=== PATIENT | male | born 1945 | race Caucasian/White ===

== ENCOUNTER 2024-05-02 08:59 | Inpatient (IN) ==
[2024-05-02] MEDS ORDERED: IOPAMIDOL 100 ML BOTTLE IV ONE (09:00)
[2024-05-02] MEDS: methylPREDNISolone SOD SUCC 125 MG/2 ML VIAL IV ONE (09:25)
[2024-05-02] MEDS: IPRATROPIUM/ALBUTEROL 3 ML AMPUL.NEB NEB ONE (09:44)
[2024-05-02 10:10] LABS: Basophils # (Auto) 0.05 K/mcL (0.00-0.30); Basophils % (Auto) 0.2 % (0.0-2.0); Eosinophils # (Auto) 0.02 K/mcL (0.00-0.70); Eosinophils % (Auto) 0.1 % (0.0-7.0); Hematocrit 39.4 % (40.1-51.0); Hemoglobin 12.6 g/dL (13.7-17.5); Lymphocytes # (Auto) 1.15 K/mcL (1.50-4.80); Lymphocytes % (Auto) 5.3 % (15.5-49.0); Mean Cell Volume 91.2 fL (80.0-100.0); Mean Platelet Volume 10.4 fL (8.8-12.5); Monocytes # (Auto) 1.23 K/mcL (0.10-0.90); Monocytes % (Auto) 5.7 % (1.0-12.0); Neutrophils % (Auto) 87.8 % (38.0-78.0); Platelet Count 726 K/mcL (140-440); RBC 4.32 M/mcL (4.63-6.08); Red Cell Distribution Width 13.9 % (11.5-14.5); WBC 21.6 K/mcL (4.5-11.0)
[2024-05-02 10:25] LABS: ALT/SGPT 45 U/L (<40); AST/SGOT 38 U/L (<40); Albumin 3.2 gm/dL (3.2-5.2); Albumin/Globulin Ratio 0.8 (1.0-2.3); Alkaline Phosphatase 120 U/L (39-117); Bilirubin,Total 0.4 mg/dL (0.1-1.0); Blood Urea Nitrogen 15 mg/dL (8-23); Calcium 9.3 mg/dL (8.6-10.4); Carbon Dioxide 22 mmol/L (22-30); Chloride 93 mmol/L (96-108); Globulin 3.8 gm/dL (2.2-3.7); Glomerular Filtration Rate 71; Glucose 171 mg/dL (70-105)
[2024-05-02] MEDS: FUROSEMIDE 40 MG/4 ML VIAL IV ONE (11:00)
[2024-05-02] MEDS: cefTRIAXone 2 GM in DEXTROSE 5% IN WATER 50 ML IV ONE (11:02)
[2024-05-02] MEDS: AZITHROMYCIN 500 MG in DEXTROSE 5% IN WATER 250 ML IV ONE (11:07)
[2024-05-02 11:49] LABS: INR 2.1 (0.9-1.1); Prothrombin Time 24.7 sec (11.9-14.5)
[2024-05-02] MEDS ORDERED: ONDANSETRON 4 MG/2 ML VIAL IV PRN (13:49)
[2024-05-02] MEDS ORDERED: MAGNESIUM HYDROXIDE 30 ML ORAL.SUSP PO PRN (13:49)
[2024-05-02] MEDS ORDERED: ACETAMINOPHEN 325 MG TABLET PO PRN (13:49)
[2024-05-02] MEDS ORDERED: BISACODYL 10 MG SUPP.RECT PR PRN (13:49)
[2024-05-02 14:18] LABS: Phosphorous 3.5 mg/dL (2.5-4.5)
[2024-05-02] MEDS: 0.9 % SODIUM CHLORIDE 10 ML SYRINGE IV SCH (15:56)
[2024-05-02] MEDS: IPRATROPIUM/ALBUTEROL 3 ML AMPUL.NEB NEB SCH (15:57)
[2024-05-02] MEDS: RIVAROXABAN 20 MG TABLET PO SCH (16:55)
[2024-05-02] MEDS: DOXYCYCLINE 100 MG in DEXTROSE 5% IN WATER 100 ML IV SCH (16:55)
[2024-05-02] MEDS: Budesonide-Formoterol [Symbicort] 160-4.5 mcg Inhaler INH SCH (21:09)
[2024-05-03 06:25] LABS: Basophils # (Auto) 0.03 K/mcL (0.00-0.30); Basophils % (Auto) 0.2 % (0.0-2.0); Eosinophils # (Auto) 0 K/mcL (0.00-0.70); Eosinophils % (Auto) 0 % (0.0-7.0); Hematocrit 35.7 % (40.1-51.0); Hemoglobin 11.7 g/dL (13.7-17.5); Lymphocytes # (Auto) 1.49 K/mcL (1.50-4.80); Lymphocytes % (Auto) 7.9 % (15.5-49.0); Mean Cell Volume 90.4 fL (80.0-100.0); Mean Corpuscular HGB Conc 32.8 g/dL (31.0-36.0); Mean Platelet Volume 10.3 fL (8.8-12.5); Monocytes # (Auto) 0.71 K/mcL (0.10-0.90); Monocytes % (Auto) 3.7 % (1.0-12.0); Neutrophils % (Auto) 87.3 % (38.0-78.0); Platelet Count 703 K/mcL (140-440); RBC 3.95 M/mcL (4.63-6.08); Red Cell Distribution Width 13.8 % (11.5-14.5); WBC 18.9 K/mcL (4.5-11.0)
[2024-05-03 06:27] LABS: C-Reactive Protein 19.4 mg/dL (0.03-0.80)
[2024-05-03 06:29] LABS: Phosphorous 4.3 mg/dL (2.5-4.5)
[2024-05-03 06:31] LABS: ALT/SGPT 37 U/L (<40); AST/SGOT 33 U/L (<40); Albumin 2.9 gm/dL (3.2-5.2); Albumin/Globulin Ratio 0.8 (1.0-2.3); Alkaline Phosphatase 109 U/L (39-117); Bilirubin,Total 0.3 mg/dL (0.1-1.0); Blood Urea Nitrogen 17 mg/dL (8-23); Carbon Dioxide 25 mmol/L (22-30); Chloride 98 mmol/L (96-108); Globulin 3.6 gm/dL (2.2-3.7); Glomerular Filtration Rate 90; Glucose 157 mg/dL (70-105)
[2024-05-03] MEDS: PANTOPRAZOLE 40 MG TABLET PO SCH (07:29)
[2024-05-03] MEDS: methylPREDNISolone SOD SUCC 125 MG/2 ML VIAL IV SCH (07:30)
[2024-05-03] MEDS: cefTRIAXone 1 GM VIAL IV SCH (09:03)
[2024-05-03] MEDS: LACTATED RINGERS 1,000 ML IV SCH ×2 (10:43→14:00)
[2024-05-03] MEDS: IPRATROPIUM/ALBUTEROL 3 ML AMPUL.NEB NEB SCH (15:47)
[2024-05-03] MEDS: SENNOSIDES 1 TABLET PO PRN (17:41)
[2024-05-03] MEDS: METOPROLOL TARTRATE 5 MG/5 ML VIAL IV ONE ×4 (23:13→23:59)
[2024-05-03] MEDS ORDERED: KETOROLAC 15 MG/ML VIAL IV PRN (23:30)
[2024-05-03] MEDS: METOPROLOL TARTRATE 5 MG/5 ML VIAL IV SCH (23:46)
[2024-05-03 23:50] LABS: Blood Urea Nitrogen 23 mg/dL (8-23); Carbon Dioxide 24 mmol/L (22-30); Chloride 97 mmol/L (96-108); Glomerular Filtration Rate 85; Glucose 150 mg/dL (70-105)
[2024-05-03] MEDS: MAG HYDROX/AL HYDROX/SIMETH 30 ML ORAL.SUSP PO ONE (23:53)
[2024-05-04] MEDS: MAG HYDROX/AL HYDROX/SIMETH 30 ML ORAL.SUSP ONE (02:44)
[2024-05-04 05:10] LABS: Basophils # (Auto) 0.01 K/mcL (0.00-0.30); Basophils % (Auto) 0 % (0.0-2.0); Eosinophils # (Auto) 0 K/mcL (0.00-0.70); Eosinophils % (Auto) 0 % (0.0-7.0); Hematocrit 34.6 % (40.1-51.0); Hemoglobin 11.3 g/dL (13.7-17.5); Lymphocytes % (Auto) 6.7 % (15.5-49.0); Mean Corpuscular HGB Conc 32.7 g/dL (31.0-36.0); Mean Platelet Volume 10.1 fL (8.8-12.5); Monocytes # (Auto) 0.74 K/mcL (0.10-0.90); Monocytes % (Auto) 3.5 % (1.0-12.0); Neutrophils % (Auto) 89.2 % (38.0-78.0); Platelet Count 715 K/mcL (140-440); RBC 3.76 M/mcL (4.63-6.08); Red Cell Distribution Width 13.7 % (11.5-14.5)
[2024-05-04 05:26] LABS: ALT/SGPT 58 U/L (<40); AST/SGOT 58 U/L (<40); Albumin 2.7 gm/dL (3.2-5.2); Albumin/Globulin Ratio 0.8 (1.0-2.3); Alkaline Phosphatase 101 U/L (39-117); Bilirubin,Total 0.2 mg/dL (0.1-1.0); Blood Urea Nitrogen 23 mg/dL (8-23); C-Reactive Protein 8.23 mg/dL (0.03-0.80); Calcium 8.9 mg/dL (8.6-10.4); Carbon Dioxide 25 mmol/L (22-30); Chloride 98 mmol/L (96-108); Globulin 3.4 gm/dL (2.2-3.7); Glomerular Filtration Rate 85; Glucose 148 mg/dL (70-105); Phosphorous 4.1 mg/dL (2.5-4.5)
[2024-05-04] MEDS: METOPROLOL SUCCINATE 50 MG TAB.XL.24H PO SCH (08:29)
[2024-05-04] MEDS: DOXYCYCLINE HYCLATE 100 MG TABLET.ORL PO SCH (08:30)
[2024-05-04] MEDS: FUROSEMIDE 40 MG/4 ML VIAL IV ONE (11:29)
[2024-05-04] MEDS: METOPROLOL TARTRATE 25 MG TABLET PO SCH (21:07)
[2024-05-05 06:16] LABS: ALT/SGPT 71 U/L (<40); AST/SGOT 56 U/L (<40); Albumin 2.7 gm/dL (3.2-5.2); Albumin/Globulin Ratio 0.9 (1.0-2.3); Alkaline Phosphatase 95 U/L (39-117); Basophils # (Auto) 0.01 K/mcL (0.00-0.30); Basophils % (Auto) 0.1 % (0.0-2.0); Bilirubin,Total 0.2 mg/dL (0.1-1.0); Blood Urea Nitrogen 27 mg/dL (8-23); C-Reactive Protein 3.33 mg/dL (0.03-0.80); Calcium 8.6 mg/dL (8.6-10.4); Carbon Dioxide 28 mmol/L (22-30); Chloride 99 mmol/L (96-108); Eosinophils # (Auto) 0.01 K/mcL (0.00-0.70); Eosinophils % (Auto) 0.1 % (0.0-7.0); Glomerular Filtration Rate 81; Glucose 106 mg/dL (70-105); Hematocrit 35.2 % (40.1-51.0); Hemoglobin 11.2 g/dL (13.7-17.5); Lymphocytes # (Auto) 2.54 K/mcL (1.50-4.80); Lymphocytes % (Auto) 13.2 % (15.5-49.0); Mean Cell Volume 92.6 fL (80.0-100.0); Mean Corpuscular HGB Conc 31.8 g/dL (31.0-36.0); Monocytes # (Auto) 1.19 K/mcL (0.10-0.90); Monocytes % (Auto) 6.2 % (1.0-12.0); Neutrophils % (Auto) 79.7 % (38.0-78.0); Phosphorous 3.8 mg/dL (2.5-4.5); Platelet Count 792 K/mcL (140-440); Red Cell Distribution Width 13.7 % (11.5-14.5); WBC 19.3 K/mcL (4.5-11.0)
[2024-05-05] MEDS: methylPREDNISolone SOD SUCC 125 MG/2 ML VIAL IV SCH (07:06)
[2024-05-05] MEDS: CEFDINIR 300 MG CAPSULE PO SCH (08:14)
[2024-05-05] MEDS ORDERED: METOPROLOL TARTRATE 50 MG TABLET PO ONE (08:19)
[2024-05-05] MEDS: METOPROLOL TARTRATE 50 MG TABLET PO SCH (08:33)
[2024-05-05] MEDS: POLYETHYLENE GLYCOL 3350 17 GM PACKET PO SCH (10:22)
[2024-05-05] MEDS: METOPROLOL TARTRATE 50 MG TABLET PO ONE (15:53)
[2024-05-05] MEDS: METOPROLOL TARTRATE 25 MG TABLET PO SCH (20:16)
[2024-05-05] MEDS ORDERED: METOPROLOL TARTRATE 25 MG TABLET PO SCH (21:00)
[2024-05-06 06:14] LABS: Basophils # (Auto) 0.02 K/mcL (0.00-0.30); Basophils % (Auto) 0.1 % (0.0-2.0); Eosinophils # (Auto) 0.07 K/mcL (0.00-0.70); Eosinophils % (Auto) 0.4 % (0.0-7.0); Hematocrit 39.3 % (40.1-51.0); Hemoglobin 12.6 g/dL (13.7-17.5); Lymphocytes # (Auto) 4.17 K/mcL (1.50-4.80); Lymphocytes % (Auto) 22.6 % (15.5-49.0); Mean Corpuscular HGB Conc 32.1 g/dL (31.0-36.0); Mean Platelet Volume 9.7 fL (8.8-12.5); Monocytes # (Auto) 1.29 K/mcL (0.10-0.90); Neutrophils % (Auto) 65.8 % (38.0-78.0); Platelet Count 748 K/mcL (140-440); RBC 4.27 M/mcL (4.63-6.08); Red Cell Distribution Width 13.5 % (11.5-14.5); WBC 18.5 K/mcL (4.5-11.0)
[2024-05-06 06:23] LABS: ALT/SGPT 120 U/L (<40); AST/SGOT 73 U/L (<40); Albumin 2.7 gm/dL (3.2-5.2); Albumin/Globulin Ratio 0.9 (1.0-2.3); Alkaline Phosphatase 94 U/L (39-117); Bilirubin,Total 0.2 mg/dL (0.1-1.0); Blood Urea Nitrogen 25 mg/dL (8-23); Calcium 8.7 mg/dL (8.6-10.4); Carbon Dioxide 27 mmol/L (22-30); Chloride 100 mmol/L (96-108); Glomerular Filtration Rate 85; Glucose 86 mg/dL (70-105); Phosphorous 2.9 mg/dL (2.5-4.5)
[2024-05-06 06:24] LABS: C-Reactive Protein 1.81 mg/dL (0.03-0.80)
[2024-05-06] MEDS: methylPREDNISolone SOD SUCC 125 MG/2 ML VIAL IV SCH (09:10)
[2024-05-07 06:07] LABS: Basophils # (Auto) 0.01 K/mcL (0.00-0.30); Basophils % (Auto) 0.1 % (0.0-2.0); Eosinophils # (Auto) 0.12 K/mcL (0.00-0.70); Eosinophils % (Auto) 0.6 % (0.0-7.0); Hematocrit 42.4 % (40.1-51.0); Hemoglobin 13.8 g/dL (13.7-17.5); Lymphocytes % (Auto) 22.8 % (15.5-49.0); Mean Cell Volume 90.4 fL (80.0-100.0); Mean Corpuscular HGB Conc 32.5 g/dL (31.0-36.0); Mean Platelet Volume 9.8 fL (8.8-12.5); Monocytes # (Auto) 1.05 K/mcL (0.10-0.90); Monocytes % (Auto) 5.6 % (1.0-12.0); Platelet Count 782 K/mcL (140-440); RBC 4.69 M/mcL (4.63-6.08); Red Cell Distribution Width 13.3 % (11.5-14.5); WBC 18.8 K/mcL (4.5-11.0)
[2024-05-07 06:34] LABS: Phosphorous 2.7 mg/dL (2.5-4.5)
[2024-05-07 06:37] LABS: ALT/SGPT 140 U/L (<40); AST/SGOT 65 U/L (<40); Albumin 3.2 gm/dL (3.2-5.2); Albumin/Globulin Ratio 0.9 (1.0-2.3); Alkaline Phosphatase 105 U/L (39-117); Bilirubin,Total 0.3 mg/dL (0.1-1.0); Blood Urea Nitrogen 26 mg/dL (8-23); Calcium 9.1 mg/dL (8.6-10.4); Carbon Dioxide 27 mmol/L (22-30); Chloride 97 mmol/L (96-108); Globulin 3.4 gm/dL (2.2-3.7); Glomerular Filtration Rate 71; Glucose 79 mg/dL (70-105)
[2024-05-07 06:44] LABS: C-Reactive Protein 1.31 mg/dL (0.03-0.80)
[2024-05-07] MEDS: predniSONE 20 MG TABLET PO SCH (08:22)
== END 2024-05-07 12:04 | disposition home or self-care (01) | DRG 871 ==
LOC: ED 08:59 → ICU 14:55
PROVIDERS: ADMIT Student in an Organized Health Care Education/Training Program; ATTEND Student in an Organized Health Care Education/Training Program

== ENCOUNTER 2025-10-31 10:13 | Observation (INO) ==
[2025-10-31 11:03] LABS: ALT/SGPT 26 U/L (<40); AST/SGOT 36 U/L (<40); Albumin 4.1 gm/dL (3.2-5.2); Albumin/Globulin Ratio 1.3 (1.0-2.3); Alkaline Phosphatase 92 U/L (39-117); Anion Gap 14.0 (8.0-16.0); Bilirubin,Total 0.3 mg/dL (0.1-1.0); Blood Urea Nitrogen 21 mg/dL (8-23); Calcium 9.7 mg/dL (8.6-10.4); Carbon Dioxide 25 mmol/L (22-30); Chloride 102 mmol/L (96-108); Globulin 3.1 gm/dL (2.2-3.7); Glucose 91 mg/dL (70-105); Potassium 4.0 mmol/L (3.3-5.1); Sodium 141 mmol/L (133-145)
[2025-10-31 11:10] LABS: Partial Thromboplastin Time 32.1 sec (20.0-37.0)
[2025-10-31 11:11] LABS: INR 1.3 (0.9-1.1); Prothrombin Time 17.0 sec (11.9-14.5)
[2025-10-31 11:16] LABS: Basophils # (Auto) 0.04 K/mcL (0.00-0.30); Basophils % (Auto) 0.5 % (0.0-2.0); Eosinophils # (Auto) 0.13 K/mcL (0.00-0.70); Eosinophils % (Auto) 1.6 % (0.0-7.0); Hematocrit 44.3 % (40.1-51.0); Hemoglobin 14.4 g/dL (13.7-17.5); Lymphocytes # (Auto) 1.97 K/mcL (1.50-4.80); Lymphocytes % (Auto) 24.3 % (15.5-49.0); Mean Corpuscular HGB Conc 32.5 g/dL (31.0-36.0); Monocytes # (Auto) 0.77 K/mcL (0.10-0.90); Monocytes % (Auto) 9.5 % (1.0-12.0); Neutrophils % (Auto) 64.0 % (38.0-78.0); Platelet Count 230 K/mcL (140-440); RBC 4.61 M/mcL (4.63-6.08); WBC 8.1 K/mcL (4.5-11.0)
[2025-10-31 12:13] LABS: Bacteria,Urine 0 /hpf (0); Bilirubin,Urine NEGATIVE (Negative); Color,Urine LT. YELLOW; Glucose,Urine (UA) NEGATIVE (Negative); Ketones,Urine NEGATIVE (Negative); Leukocyte Esterase,Urine NEGATIVE /uL (Negative); PH,Urine 7.0 (5.0-9.0); Protein,Urine NEGATIVE (Negative); Specific Gravity,Urine <= 1.005 (1.000-1.035); Urobilinogen,Urine 0.2 mg/dL
[2025-10-31] MEDS ORDERED: SENNOSIDES 1 TABLET PO PRN (13:51)
[2025-10-31] MEDS ORDERED: POTASSIUM CHLORIDE 20 MEQ TABLET PO PRN ×2 (13:51)
[2025-10-31] MEDS ORDERED: ONDANSETRON 4 MG/2 ML VIAL IV PRN (13:51)
[2025-10-31] MEDS ORDERED: IPRATROPIUM/ALBUTEROL 3 ML AMPUL.NEB NEB PRN (13:51)
[2025-10-31] MEDS ORDERED: POTASSIUM CHLORIDE 40 MEQ in DEXTROSE 5% IN WATER 500 ML IV PRN (13:51)
[2025-10-31] MEDS ORDERED: METOCLOPRAMIDE 10 MG/2 ML VIAL IV PRN (13:51)
[2025-10-31] MEDS ORDERED: POLYETHYLENE GLYCOL 3350 17 GM PACKET PO PRN (13:51)
[2025-10-31] MEDS ORDERED: ACETAMINOPHEN 325 MG TABLET PO PRN (13:51)
[2025-10-31] MEDS ORDERED: MAGNESIUM SULFATE 2 GM/50 ML BAG IV PRN (13:51)
[2025-10-31] MEDS: 0.9 % SODIUM CHLORIDE 1,000 ML IV ONE (14:41)
[2025-10-31 14:45] LABS: HDL Cholesterol 46 mg/dL (>40); LDL Cholesterol,Calculated 141 mg/dL (<100); Triglycerides 115 mg/dL (<150)
[2025-10-31] MEDS: TENECTEPLASE 50 MG/10 ML VIAL IV ONE (15:55)
[2025-10-31] MEDS: METOPROLOL SUCCINATE 50 MG TAB.XL.24H PO SCH (21:05)
[2025-10-31] MEDS: ATORVASTATIN 20 MG TABLET PO SCH (21:05)
[2025-10-31] MEDS: DOCUSATE SODIUM 100 MG CAPSULE PO SCH (21:07)
[2025-10-31] MEDS: Budesonide-Formoterol [Symbicort] 160-4.5 mcg Inhaler INH SCH (21:07)
[2025-11-01 06:43] LABS: ALT/SGPT 19 U/L (<40); AST/SGOT 32 U/L (<40); Albumin 3.7 gm/dL (3.2-5.2); Albumin/Globulin Ratio 1.3 (1.0-2.3); Alkaline Phosphatase 82 U/L (39-117); Anion Gap 11.0 (8.0-16.0); Bilirubin,Direct < 0.2 mg/dL (0-0.3); Bilirubin,Total 0.4 mg/dL (0.1-1.0); Blood Urea Nitrogen 17 mg/dL (8-23); Calcium 8.5 mg/dL (8.6-10.4); Carbon Dioxide 22 mmol/L (22-30); Chloride 105 mmol/L (96-108); Globulin 2.8 gm/dL (2.2-3.7); Glucose 106 mg/dL (70-105); Phosphorous 2.9 mg/dL (2.5-4.5); Potassium 3.9 mmol/L (3.3-5.1); Sodium 138 mmol/L (133-145); Triglycerides 87 mg/dL (<150); Uric Acid 5.3 mg/dL (2.5-8.0)
[2025-11-01] MEDS ORDERED: METOPROLOL SUCCINATE 50 MG TAB.XL.24H PO SCH (09:00)
[2025-11-01] MEDS: OMEPRAZOLE 20 MG CAPSULE PO SCH (10:05)
[2025-11-01] MEDS: RIVAROXABAN 20 MG TABLET PO SCH (16:53)
[2025-11-01] MEDS: ATORVASTATIN 20 MG TABLET PO SCH (19:57)
[2025-11-02 12:06] VITALS: TEMP 97.7
[2025-11-02 14:47] VITALS: O2SAT 96
== END 2025-11-02 14:05 | disposition home or self-care (01) ==
LOC: ED 10:13 → ICU 10:13
PROVIDERS: ADMIT Internal Medicine; ATTEND Internal Medicine